=== PATIENT | male | born 1950 | race Caucasian/White ===

== ENCOUNTER 2020-06-05 10:09 | Emergency (ER) | payer MEDICARE ==
--- NOTE | 2020-06-05 10:40 | ERPHSYRPT ---
- History of Present Illness Time Seen by Provider: 06/05/20 10:36 Source: patient Exam Limitations: no limitations Patient Subjective Stated Complaint: PT HERE FOR PAIN TO LEFT WRIST, HE STATES HE FELL IN GARDEN LAST NIGHT, AND LANDED ON LEFT WRIST, Triage Nursing Assessment: PT ALERT, WALKED IN, RESP EASY, FACE MASK IN PLACE, HAS SWELLING TO LEFT HAND, STRONG PULSE . ABRASION TO RIGHT SIDE OF HEAD Physician History: 69-year-old male with history of hypertension was working in his garden yesterday and fell and injured his left wrist. He came to the emergency room today morning complaining of pain in the left wrist but he was able to move it. Occurred: yesterday Method of Injury: fell Quality: constant Severity of Pain-Max: moderate Severity of Pain-Current: moderate Extremities Pain Location: wrist: left, hand: left Modifying Factors: Improves With: cold therapy Associated Symptoms: none Body Map: 1 - pain and swelling Allergies/Adverse Reactions: levofloxacin [From Levaquin] Allergy (Verified 06/05/20 10:32) Home Medications: Amlodipine Besylate 5 mg [Norvasc 5 mg] 2.5 mg PO DAILY 10/15/13 [History] Aspirin [Aspirin EC] 81 mg PO DAILY 10/15/13 [History] Metoprolol Tartrate 25 mg [Lopressor 25MG Tab] 25 mg PO STAT 10/15/13 [History] Multivitamin [Multi Vitamin Daily] 1 tab PO DAILY 10/15/13 [History] Omeprazole [Prilosec] 40 mg PO DAILY 10/15/13 [History] Potassium Chloride 20 Meq [Klor-Con 20 MEQ] 20 meq PO DAILY 10/15/13 [History] Simvastatin 20 mg PO DAILY 10/15/13 [History] Sucralfate 1 gm [Carafate 1 GM] 1 g PO ACHS 10/15/13 [History] Hx Tetanus, Diphtheria Vaccination/Date Given: No Hx Influenza Vaccination/Date Given: No Hx Pneumococcal Vaccination/Date Given: No Immunizations Up to Date: Yes Travel Risk - International Travel Have you traveled outside of the country in past 3 weeks: No - Coronavirus Screening Are you exhibiting any of the following symptoms?: No Close contact with a COVID-19 positive Pt in past 14-21 Days: No - Review of Systems Constitutional: No Fever, No Chills Eyes: No Symptoms Ears, Nose, & Throat: No Symptoms Respiratory: No Cough, No Dyspnea Cardiac: No Chest Pain, No Edema, No Syncope Abdominal/Gastrointestinal: No Abdominal Pain, No Nausea, No Vomiting, No Di arrhea Genitourinary Symptoms: No Dysuria Musculoskeletal: Joint Redness (left wrist), Joint Pain, Joint Swelling, No Back Pain, No Neck Pain Skin: No Rash Neurological: No Dizziness, No Focal Weakness, No Sensory Changes Psychological: No Symptoms Endocrine: No Symptoms All Other Systems: Reviewed and Negative - Past Medical History Pertinent Past Medical History: Yes Neurological History: No Pertinent History Cardiac History: High Cholesterol, Hypertension Respiratory History: No Pertinent History Endocrine Medical History: No Pertinent History Musculoskeletal History: Arthritis GI Medical History: GERD - Past Surgical History Past Surgical History: Yes Gastrointestinal: Appendectomy, Cholecystectomy Musculoskeletal: Joint Replacement, Orthopedic Surgery Other Surgical History: CATARACTS.KNEES RPLACED - Social History Smoking Status: Smoker, status unknown Exposure to second hand smoke: No Drug Use: none Patient Lives Alone: No - Nursing Vital Signs Nursing Vital Signs: Initial Vital Signs Temperature 97.0 F 06/05/20 10:26 Pulse Rate 69 06/05/20 10:26 Respiratory Rate 18 06/05/20 10:26 Blood Pressure 153/87 06/05/20 10:26 O2 Sat by Pulse Oximetry 96 06/05/20 10:26 Pain Scale Pain Intensity 5 - Physical Exam General Appearance: alert Eyes, Ears, Nose, Throat Exam: moist mucous membranes Neck Exam: non-tender, supple Cardiovascular/Respiratory Exam: chest non-tender, normal breath sounds, regular rate/rhythm, no respiratory distress Abdominal Exam: non-tender, No guarding Back Exam: normal inspection, No vertebral tenderness Wrist Exam: bone tenderness, deformity, soft tissue tenderness (left ) Hand Exam: swelling (left hand) Neuro/Tendon Exam: normal sensation, normal motor functions Mental Status Exam: alert, oriented x 3, cooperative Skin Exam: normal color, warm, dry SpO2: 96 Procedures - Splinting Location of Splint: Left Splint Applied By: ED Nurse Pre-Proc Neuro Vasc Exam: normal Post-Proc Neuro Vasc Exam: neurovascular intact - Course Nursing assessment & vital signs reviewed: Yes - Radiology Exams Wrist X-ray Interpretation: Reviewed by me (subtle nondisplaced dorsal triquetral fracture) Hand X-ray Interpretation: Reviewed by me Ordered Tests: Active Orders 24 hr Category Date Time Status HAND (MINIMUM 3 VIEWS) Stat Exams 06/05/20 10:30 Taken WRIST (MIN 3 VIEWS) Stat Exams 06/05/20 10:31 Taken - Progress Progress: pain not gone completely Counseled pt/family regarding: diagnosis, need for follow-up, rad results - Departure Departure Disposition: Home Clinical Impression: Triquetral fracture Qualifiers: Encounter type: initial encounter Fracture type: closed Fracture alignment: nondisplaced Laterality: left Qualified Code(s): S62.115A - Nondisplaced fracture of triquetrum [cuneiform] bone, left wrist, initial encounter for closed fracture Condition: Stable Critical Care Time: No Referrals: PAULINA LOTT MD [Primary Care Provider] - [facility]Ortho M-F [id number] Additional Instructions: Discharge/Care Plan SILVANA MOORE was seen on 06/05/20 in the Emergency Room. The patient was counseled regarding Diagnosis,Lab results, Imaging studies, need for follow up and when to return to the Emergency Room. Prescriptions given: Discharge Note I have spoken with the patient and/or caregivers. I have explained the patient's condition, diagnosis and treatment plan based on the information available to me at this time. I have answered the patient's and/or caregiver's questions and addressed any concerns. The patient and/or caregivers have as good understanding of the patient's diagnosis, condition and treatment plan as can be expected at this point. The vital signs have been stable. The patient's condition is stable and appropriate for discharge from the emergency department. The patient will pursue further outpatient evaluation with the primary care physician or other designated or consulting physician as outlined in the discharge instructions. The patient and/or caregivers are agreeable to this plan of care and follow-up instructions have been explained in detail. The patient and/or caregivers have received these instruction. The patient/and or caregivers are aware that any significant change in condition or worsening of symptoms should prompt an immediate return to this or the closest emergency department or call 911. Prescriptions: Naproxen 375 mg [Naprosyn 375 mg] 375 mg PO Q8H #30 tablet
[2020-06-05 12:36] VITALS: BP 142/75; PULSE 67; O2SAT 97
--- NOTE | 2020-06-05 18:26 | XRAY ---
Indication: Medial wrist/thumb pain following fall. Comparison: None 3 view left wrist demonstrates tiny minimally displaced triquetrum fracture posteriorly with soft tissue swelling. Elsewhere mild osteopenia, radiocarpal degenerative joint space narrowing, moderate/advanced degenerative changes 1st metacarpal multangular scaphoid articulation, and small pisiform heterotopic ossification. Comment: Preliminary interpretation was made by [facility]. No critical discrepancy.
--- NOTE | 2020-06-05 18:28 | XRAY ---
Indication: Medial wrist/thumb pain following fall. Comparison: None 3 view left hand demonstrates mild osteopenia, mild degenerative changes of all IP joints, and moderate/advanced degenerative changes 1st metacarpal multangular scaphoid articulation. No other bony, articular, or soft tissue abnormalities. Wrist reported separately. Comment: Preliminary interpretation was made by [facility]. No critical discrepancy.
== END 2020-06-05 12:46 | disposition home or self-care (01) ==
LOC: ED 10:09
DX: S62.115A Nondisplaced fracture of triquetrum [cuneiform] bone, left wrist, initial encounter for closed fracture (principal); M25.532 Pain in left wrist; W19.XXXA Unspecified fall, initial encounter; Y93.H2 Activity, gardening and landscaping; Y92.89 Other specified places as the place of occurrence of the external cause; Z79.899 Other long term (current) drug therapy
CPT/HCPCS: 29126; 73110; 73130; 99283

== ENCOUNTER 2020-11-19 14:26 | Emergency (ER) | payer MEDICARE ==
--- NOTE | 2020-11-19 15:05 | ERPHSYRPT ---
- History of Present Illness Time Seen by Provider: 11/19/20 14:54 Source: patient Exam Limitations: no limitations Patient Subjective Stated Complaint: pt here for pain to left wrist after tripping at work, Triage Nursing Assessment: pt walked in ,face mask in place, resp easy, skin w/d/p.has abrasion to right elbow, and swelling to left wrist Physician History: 70 years old male with history of hypertension presented in the ER with chief complaint of fall with left wrist injury. Patient report he was moving a cart at work and tripped leading to a fall and tried to catch himself with outstretched left hand. He has some abrasion on the second and third digit but no pain. Pain is mainly in left wrist moderate intensity sharp nature, aggravated with movements at the wrist. No difficulty movements of fingers. No pain in the hand itself. No injury anywhere else. Does not want any pain medicine. Did not hit his head, no loss of consciousness. Occurred: just prior to arrival Method of Injury: fell Quality: sharpness Severity of Pain-Max: moderate Severity of Pain-Current: moderate Extremities Pain Location: wrist: left Modifying Factors: Improves With: immobilization. Worsens With: movement Associated Symptoms: none Allergies/Adverse Reactions: levofloxacin [From Levaquin] Allergy (Verified 11/19/20 14:34) Home Medications: Amlodipine Besylate 5 mg [Norvasc 5 mg] 2.5 mg PO DAILY 10/15/13 [History] Aspirin [Aspirin EC] 81 mg PO DAILY 10/15/13 [History] Metoprolol Tartrate 25 mg [Lopressor 25MG Tab] 25 mg PO STAT 10/15/13 [ History] Multivitamin [Multi Vitamin Daily] 1 tab PO DAILY 10/15/13 [History] Omeprazole [Prilosec] 40 mg PO DAILY 10/15/13 [History] Simvastatin 20 mg PO DAILY 10/15/13 [History] Sucralfate 1 gm [Carafate 1 GM] 1 g PO BID 10/15/13 [History] Hx Tetanus, Diphtheria Vaccination/Date Given: No Hx Influenza Vaccination/Date Given: No Hx Pneumococcal Vaccination/Date Given: No Immunizations Up to Date: Yes Travel Risk - International Travel Have you traveled outside of the country in past 3 weeks: No - Coronavirus Screening Are you exhibiting any of the following symptoms?: No Close contact with a COVID-19 positive Pt in past 14-21 Days: No - Review of Systems Constitutional: No Symptoms Eyes: No Symptoms Ears, Nose, & Throat: No Symptoms Respiratory: No Symptoms Cardiac: No Symptoms Abdominal/Gastrointestinal: No Symptoms Genitourinary Symptoms: No Symptoms Musculoskeletal: Fall, Injury, Joint Pain Skin: No Symptoms Neurological: No Symptoms Psychological: No Symptoms Endocrine: No Symptoms Hematologic/Lymphatic: No Symptoms Immunological/Allergic: No Symptoms - Past Medical History Pertinent Past Medical History: Yes Neurological History: No Pertinent History Cardiac History: High Cholesterol, Hypertension Respiratory History: No Pertinent History Endocrine Medical History: No Pertinent History Musculoskeletal History: Arthritis GI Medical History: GERD - Past Surgical History Past Surgical History: Yes Gastrointestinal: Appendectomy, Cholecystectomy Musculoskeletal: Joint Replacement, Orthopedic Surgery Other Surgical History: CATARACTS.KNEES RPLACED - Social History Smoking Status: Never smoker Exposure to second hand smoke: No Drug Use: none Patient Lives Alone: No - Nursing Vital Signs Nursing Vital Signs: Initial Vital Signs Temperature 97.2 F 11/19/20 14:28 Pain Scale Pain Intensity 7 - Physical Exam General Appearance: no apparent distress, alert Eyes, Ears, Nose, Throat Exam: normal ENT inspection Neck Exam: normal inspection, non-tender, supple, full range of motion Cardiovascular/Respiratory Exam: chest non-tender, normal breath sounds, regular rate/rhythm Abdominal Exam: non-tender, soft Back Exam: normal inspection, normal range of motion Shoulder Exam: normal inspection, non-tender, no evidence of injury, normal ROM Elbow/Forearm Exam: normal inspection, non-tender, no evidence of injury, normal ROM Wrist Exam: bone tenderness (Left wrist swelling and tenderness along the entire wrist dorsally. Restricted range of motions. Abrasion left hand second and third digit with intact range of motion at interphalangeal joints.), limited ROM, pain, soft tissue tenderness, swelling Hand Exam: abrasions Neuro/Tendon Exam: normal sensation, normal motor functions, normal tendon functions Mental Status Exam: alert, oriented x 3, cooperative Skin Exam: normal color SpO2 Interpretation: normal O2 Delivery: Room Air Ordered Tests: Active Orders 24 hr Category Date Time Status WRIST (MIN 3 VIEWS) Stat Exams 11/19/20 15:11 Completed - Progress Progress: unchanged Progress Note: 11/19/20 15:31 X-rays are negative for any fracture dislocation. Has old changes. Placement wrist splint. Recommended outpatient Ortho clinic follow-up. Will give pain medication to take as needed. Discussed signs symptoms of worsening needing return to ER which he seems understanding. No injury anywhere else. Stable for discharge. Counseled pt/family regarding: diagnosis, need for follow-up, rad results - Departure Departure Disposition: Home Clinical Impression: Left wrist sprain Qualifiers: Encounter type: initial encounter Qualified Code(s): S63.502A - Unspecified sprain of left wrist, initial encounter Fall Qualifiers: Encounter type: initial encounter Qualified Code(s): W19.XXXA - Unspecified fall, initial encounter Condition: Stable Critical Care Time: No Referrals: PAULINA LOTT MD [Primary Care Provider] - Follow Up with PCP/3 days ALBERTO MOSLEY NP [NON-STAFF PHY W/O PRIVILEGES] - (3 days for re evaluation ) Instructions: Common Wrist Injuries (DC) Additional Instructions: Take pain medications as needed. Follow-up with Ortho clinic for reevaluation. Return to ER for any worsening pain swelling or difficulty movements. Prescriptions: Hydrocodone/APAP 5/325 [Maljamar 5/325 mg] 1 each PO Q6H PRN PRN 3 Days #10 tablet MDD 4 PRN Reason: Pain
--- NOTE | 2020-11-19 15:21 | XRAY ---
Indication: Pain following fall. Comparison: August 10, 2020. 3 view left wrist unchanged again demonstrating tiny nonunited posterior triquetrum fracture, osteopenia, radiocarpal joint space narrowing, moderate/advanced degenerative changes 1st metacarpal multangular scaphoid articulation, tiny pisiform heterotopic ossification, and mild vascular calcifications. No new/acute findings.
[2020-11-19] MEDS ORDERED: Adacel Vial IM ONE ×2 (15:31→15:42)
[2020-11-19 16:15] VITALS: BP 191/86; PULSE 78; O2SAT 98
== END 2020-11-19 16:16 | disposition home or self-care (01) ==
LOC: ED 14:26
DX: S63.502A Unspecified sprain of left wrist, initial encounter (principal); M25.532 Pain in left wrist; W01.0XXA Fall on same level from slipping, tripping and stumbling without subsequent striking against object, initial encounter; I10 Essential (primary) hypertension; E78.00 Pure hypercholesterolemia, unspecified; Z79.899 Other long term (current) drug therapy; S50.311A Abrasion of right elbow, initial encounter
CPT/HCPCS: 73110; 90471; 90715; 99284; A4570